=== PATIENT | male | born 1980 | race Two or more races ===

== ENCOUNTER 2017-09-01 14:47 | Emergency (ER) | payer MEDICAID, OTHER ==
[~2017-09-01] VITALS: Ht 175.3 cm; Wt 75.0 kg
[2017-09-01 17:28] VITALS: BP 121/73
== END 2017-09-01 19:06 | disposition left against medical advice (07) ==
LOC: ER 15:40
DX: M79.672 Pain in left foot (principal); F17.200 Nicotine dependence, unspecified, uncomplicated; F11.10 Opioid abuse, uncomplicated; F15.10 Other stimulant abuse, uncomplicated; W10.8XXA Fall (on) (from) other stairs and steps, initial encounter; Y93.89 Activity, other specified; Y92.89 Other specified places as the place of occurrence of the external cause; Y99.8 Other external cause status
CPT/HCPCS: 71045; 73630; 93005; 99284